=== PATIENT | male | born 1975 | race Caucasian/White ===

== ENCOUNTER → 2017-09-04 11:55 | Outpatient (CLI) | payer MEDICAID, SELFPAY ==
--- NOTE | 2017-09-04 11:59 | XR_ITS ---
EXAM: XR thoracic spine 3V HISTORY: Thoracic pain ITS.REASON: chronic pain COMPARISON: None FINDINGS: There is normal alignment. There is mild kyphosis of the thoracic spine with mild wedging of multiple dorsal vertebral bodies including T4-T12 most prominent at T5, T6, and T7. There are no previous exams available for comparison to determine the age of these compression changes. MRI may be of further value clinically warranted. There is minimal mid thoracic curvature convex right. On the frontal view the compression changes at T7 slightly more prominent on the right and T6 slightly more prominent on the left. IMPRESSION: Thoracic kyphosis with multiple wedge compression changes as described above age-indeterminate. Consider MRI for more thorough evaluation
--- NOTE | 2017-09-04 11:59 | XR_ITS ---
EXAM: XR cervical spine min 6V HISTORY: Neck pain ITS.REASON: back pain ORDERING PHYSICIAN: Armand Vazquez PATIENT AGE: 41 years COMPARISON: None FINDINGS: Normal alignment. No fracture or dislocation. No lytic or blastic change. No significant degenerative change. The disc spaces are preserved. The foramina are widely patent. Small anterior osteophytes at C5-C6. No evidence of cervical rib. IMPRESSION: 1. Small anterior osteophyte at C5-C6. 2. Otherwise negative cervical spine
--- NOTE | 2017-09-04 11:59 | XR_ITS ---
EXAM: XR lumbar spine 2-3V HISTORY: ITS.REASON: chronic back pain prior injury ORDERING PHYSICIAN: Armand Vazquez PATIENT AGE: 41 years COMPARISON: None FINDINGS: Normal alignment. No fracture or dislocation. No lytic or blastic change. No significant degenerative change. The disc spaces are preserved. IMPRESSION: Negative lumbar spine
[2017-09-04 12:16] LABS: Basophils # 0.2 K/mm3 (0-0.2); Basophils % 2.4 % (0.1-2.0); Eosinophils # 0.3 K/mm3 (0.0-0.4); Hematocrit 46.9 % (42.0-52.0); Hemoglobin 15.4 g/dL (14.1-18.0); Lymphocytes # 2.5 K/mm3 (0.7-4.5); Lymphocytes % 38.7 K/mm3 (10-50); Mean Corpuscular HGB Conc 32.9 g/dL (31.8-35.4); Mean Corpuscular Hemoglobin 33.1 pg (27.0-31.2); Mean Corpuscular Volume 100.5 fl (80-94); Mean Platelet Volume 7.9 fl (7.4-10.4); Monocytes # 0.6 K/mm3 (0.1-1.0); Monocytes % 9.2 % (1.7-9.3); Neutrophils # 2.9 K/mm3 (1.8-7.8); Neutrophils % 44.7 % (37.0-80.0); Platelet Count 248 K/mm3 (142-424); Red Blood Count 4.67 M/mm3 (4.60-6.20); Red Cell Distribution Width 13.2 % (11.5-17.5); White Blood Count 6.4 K/mm3 (4.8-10.8)
[2017-09-04 14:57] LABS: Alanine Aminotransferase 81 U/L (12-78); Albumin Level 4.1 gm/dL (3.4-5.0); Albumin/Globulin Ratio 1.1 (1.1-1.8); Alkaline Phosphatase 99 U/L (46-116); Anion Gap 12.7 mEq/L (5-15); Aspartate Amino Transferase 72 U/L (15-37); Bilirubin,Total 0.4 mg/dL (0.2-1.0); Blood Urea Nitrogen 12 mg/dL (7-18); Calcium 9.1 mg/dL (8.5-10.1); Carbon Dioxide 26 mmol/L (21.0-32.0); Chloride 106 mmol/L (98-107); Chol/HDL Ratio 2.4 (1-3.5); Cholesterol 215 mg/dL (140-200); Creatinine,Serum 0.84 mg/dL (0.70-1.30); Estimated Glomerular Filt Rate 101 ml/min (>60); GFR (African American) 122 ML/MIN (>60); Globulin 3.7 gm/dl (1.3-3.2); Glucose 90 mg/dL (74-106); HDL Cholesterol 91 mg/dL (27-67); LDL Cholesterol 113 mg/dL (0-130); Potassium 4.7 mmoL/L (3.5-5.1); Sodium 140 mmol/L (136-145); T4 (Thyroxine) 6.8 ug/dl (4.7-13.3); Thyroid Stimulating Hormone 1.23 uIU/ml (0.358-3.740); Total Protein,Serum 7.8 gm/dL (6.4-8.2); Triglycerides 55 mg/dL (30-200); VLDL Cholesterol 11 mg/dL (0-40)
[2017-09-05 09:18] LABS: Hep A Ab, IgM Negative (Negative); Hepatitis B Core Antibody IgM Positive (Negative)
[2017-09-06 11:09] LABS: Vitamin D 25 Hydroxy 18.2 ng/mL (30.0-100.0)
[2017-09-06 11:10] LABS: Hepatitis B Surface Antigen Positive (Negative); Hepatitis C Antibody >11.0 s/co ratio (0.0-0.9); PSA, Free 0.17 ng/mL; Prostate Specific Ag 0.5 ng/mL (0.0-4.0)
== END ==
PROVIDERS: PCP Emergency Medicine; Visit Provider Nurse Practitioner Family
DX: M54.9 Dorsalgia, unspecified (principal); G89.29 Other chronic pain; Z76.89 Persons encountering health services in other specified circumstances
CPT/HCPCS: 36415; 72052; 72072; 72100; 80053; 80061; 80074; 82652; 84153; 84154; 84436; 84443; 85025

== ENCOUNTER 2017-09-16 08:03 | Outpatient (RCR) | payer MEDICAID, SELFPAY ==
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
== END 2017-09-16 08:05 | disposition home or self-care (01) ==
LOC: PT 08:03
PROVIDERS: PCP Emergency Medicine; Visit Provider Nurse Practitioner Family
DX: M54.2 Cervicalgia (principal); G89.29 Other chronic pain

== ENCOUNTER → 2019-08-12 17:35 | Outpatient (CLI) | payer OTHER, SELFPAY ==
[2019-08-12 18:19] LABS: Basophils # 0.1 K/mm3 (0-0.2); Basophils % 1.3 % (0.1-2.0); Eosinophils # 0.4 K/mm3 (0.0-0.4); Eosinophils % 4.4 % (0.1-12.0); Hematocrit 44.5 % (42.0-52.0); Hemoglobin 14.7 g/dL (14.1-18.0); Lymphocytes # 3.5 K/mm3 (0.7-4.5); Mean Corpuscular Hemoglobin 33.6 pg (27.0-31.2); Mean Corpuscular Volume 101.9 fl (80-94); Mean Platelet Volume 9.1 fl (7.4-10.4); Monocytes % 10.8 % (1.7-9.3); Neutrophils # 4.2 K/mm3 (1.8-7.8); Neutrophils % 45.5 % (37.0-80.0); Platelet Count 286 K/mm3 (142-424); Red Blood Count 4.37 M/mm3 (4.60-6.20); Red Cell Distribution Width 13.1 % (11.5-17.5); White Blood Count 9.3 K/mm3 (4.8-10.8)
[2019-08-12 18:48] LABS: Alanine Aminotransferase 93 U/L (12-78); Albumin Level 3.5 gm/dL (3.4-5.0); Alkaline Phosphatase 104 U/L (46-116); Anion Gap 13.8 mEq/L (5-15); Aspartate Amino Transferase 67 U/L (15-37); Bilirubin,Total 0.4 mg/dL (0.2-1.0); Blood Urea Nitrogen 3 mg/dL (7-18); Calcium 8.7 mg/dL (8.5-10.1); Carbon Dioxide 26 mmol/L (21.0-32.0); Chloride 105 mmol/L (98-107); Creatinine,Serum 0.83 mg/dL (0.70-1.30); Estimated Glomerular Filt Rate 102 ml/min (>60); GFR (African American) 123 ML/MIN (>60); Globulin 3.5 gm/dl (1.3-3.2); Glucose 89 mg/dL (74-106); Potassium 3.8 mmoL/L (3.5-5.1); Sodium 141 mmol/L (136-145)
[2019-08-14 09:13] LABS: Hep A Ab, IgM Negative (Negative); Hepatitis B Core Antibody IgM Positive (Negative)
[2019-08-14 19:04] LABS: Hepatitis B Surface Antigen Positive (Negative); Hepatitis C Antibody >11.0 s/co ratio (0.0-0.9)
[2019-08-16 17:56] LABS: Folate 12.8 ng/mL (>3.0); Vitamin B12 1002 pg/mL (232-1245)
[2019-08-17 00:09] LABS: HCV Genotype Charge YES; Hepatitis C Genotype 1a (.)
== END ==
PROVIDERS: Visit Provider Emergency Medicine
DX: B19.20 Unspecified viral hepatitis C without hepatic coma (principal); D64.9 Anemia, unspecified
CPT/HCPCS: 80053; 80074; 82607; 82746; 85025; 87522; 87902

== ENCOUNTER → 2019-09-02 15:56 | Outpatient (CLI) | payer OTHER, SELFPAY ==
[2019-09-02 16:43] LABS: INR 1.11 (0.9-1.1); Prothrombin Time 11.5 seconds (9.4-11.8)
[2019-09-04 11:27] LABS: HIV Screen 4th Generation wRfx Non Reactive (Non Reactive)
[2019-09-11 18:42] LABS: HBV Geno CHG YES
== END ==
PROVIDERS: Visit Provider Emergency Medicine
DX: B19.20 Unspecified viral hepatitis C without hepatic coma (principal)
CPT/HCPCS: 36415; 85610; 86703; 87517; 87912; G0432

== ENCOUNTER → 2019-09-17 08:08 | Outpatient (CLI) | payer OTHER, SELFPAY ==
--- NOTE | 2019-09-17 08:15 | MR_ITS ---
PROCEDURE: MR CERVICAL SPINE WO CON CLINICAL INDICATION: neck pain Chronic neck pain COMPARISON: [facility] XR cervical spine min 6V from 09/04/2017 TECHNIQUE: Standard multiplanar multiecho sequences are performed without contrast. 3-D MIP and myelographic images are also rendered and reviewed FINDINGS: There is normal alignment. The craniocervical junction has an unremarkable appearance. C2-C3 and C3-C4 have an unremarkable appearance. C4-C5: Mild degenerative disc disease with minimal bulging disc. C5-C6: There is mild chronic wedging of C5 anteriorly with anterior osteophytes. There is a small central disc protrusion which is slightly eccentric toward the left abutting the anterior aspect of the cord on the left with minimal contour deformity of the cord at this region. This is causing narrowing of the canal with canal measuring 8 mm at the level of the disc protrusion. C6-C7: Unremarkable. C7-T1: Unremarkable. IMPRESSION: 1. There is mild chronic wedging of C5 anteriorly with anterior osteophytes. At C5-C6, there is a small central and left paracentral disc protrusion abutting the anterior aspect of the cord on the left with minimal contour deformity of the cord at this region. This is causing narrowing of the canal with canal measuring 8 mm at the level of the disc protrusion 2. Minimal bulging disc with mild degenerative disc disease at C4-C5 Dictated by: Jairo Lopez MD 09/18/2019 10:12 Electronically signed by Jiaro Lopez MD in [place] 09/18/2019 10:12
== END ==
PROVIDERS: PCP Emergency Medicine; Visit Provider Emergency Medicine
DX: M54.2 Cervicalgia (principal)
CPT/HCPCS: 72141; 76376

== ENCOUNTER → 2020-01-05 16:37 | Outpatient (CLI) | payer OTHER, SELFPAY ==
[2020-01-05 16:54] LABS: Basophils # 0.2 K/mm3 (0-0.2); Basophils % 1.9 % (0.1-2.0); Eosinophils # 0.4 K/mm3 (0.0-0.4); Eosinophils % 5.1 % (0.1-12.0); Hematocrit 45.2 % (42.0-52.0); Lymphocytes % 37.7 % (10-50); Mean Corpuscular HGB Conc 33.1 g/dL (31.8-35.4); Mean Corpuscular Hemoglobin 34.1 pg (27.0-31.2); Mean Corpuscular Volume 102.9 fl (80-94); Monocytes # 0.9 K/mm3 (0.1-1.0); Monocytes % 11.4 % (1.7-9.3); Neutrophils # 3.5 K/mm3 (1.8-7.8); Neutrophils % 43.9 % (37.0-80.0); Platelet Count 222 K/mm3 (142-424); Red Blood Count 4.39 M/mm3 (4.60-6.20); Red Cell Distribution Width 13.3 % (11.5-17.5); White Blood Count 8.1 K/mm3 (4.8-10.8)
[2020-01-05 17:03] LABS: Chloride 107 mmol/L (98-107); Potassium 4.5 mmoL/L (3.5-5.1); Sodium 139 mmol/L (136-145)
[2020-01-05 17:06] LABS: Alanine Aminotransferase 251 U/L (12-78); Albumin Level 3.7 g/dl (3.5-5.0); Albumin/Globulin Ratio 1.1 (1.1-1.8); Alkaline Phosphatase 130 U/L (38-126); Anion Gap 9.5 mEq/L (5-15); Aspartate Amino Transferase 256 U/L (17-59); Bilirubin,Total 0.7 mg/dl (0.2-1.3); Blood Urea Nitrogen 10 mg/dl (9-20); Calcium 8.8 mg/dl (8.4-10.2); Carbon Dioxide 27 mmol/L (22.0-30.0); Estimated Glomerular Filt Rate 106 ml/min (>60); GFR (African American) 128 ML/MIN (>60); Globulin 3.5 g/dL (1.3-3.2); Glucose 80 mg/dl (74-100); Total Protein,Serum 7.2 g/dl (6.3-8.2)
[2020-01-07 08:14] LABS: HIV Screen 4th Generation wRfx Non Reactive (Non Reactive); Hep A Ab, IgM Negative (Negative); Hep A Ab, Total Negative (Negative); Hep B Core Ab, Total Positive (Negative)
[2020-01-07 10:00] LABS: Hep B Surface Ab, Qual Non Reactive (.); Hepatitis B Surface Antigen Positive (Negative)
[2020-01-14 00:12] LABS: Hepatitis C Genotype 1a (.)
== END ==
PROVIDERS: Visit Provider Emergency Medicine
DX: B19.10 Unspecified viral hepatitis B without hepatic coma (principal); B19.20 Unspecified viral hepatitis C without hepatic coma
CPT/HCPCS: 80053; 85025; 86703; 86704; 86706; 86708; 87340; 87517; 87522; G0432

== ENCOUNTER 2020-01-31 20:02 | Emergency (ER) | payer OTHER, SELFPAY ==
[2020-01-31 20:14] VITALS: BP 168/122; PULSE 110; RESP 16; TEMP 36.5; O2SAT 98; BMI 22.6
--- NOTE | 2020-01-31 20:20 | PC.NURSE ---
Pt walking out, when asked where he was going he stated I'm leaving I don't want to be here pt refused to stop and let me talk to him about the dangers of leaving before the doctor see him.
[2020-01-31 20:25] VITALS: BP 000/00; PULSE 0; RESP 0; TEMP -17.7; TEMP 0; O2SAT 0
== END 2020-01-31 20:20 | disposition left against medical advice (07) ==
PROVIDERS: Emergency Provider Emergency Medicine; PCP Emergency Medicine
DX: Z53.21 Procedure and treatment not carried out due to patient leaving prior to being seen by health care provider (principal); M54.9 Dorsalgia, unspecified
CPT/HCPCS: 99211

== ENCOUNTER → 2020-09-29 09:29 | Outpatient (CLI) | payer OTHER, SELFPAY ==
[2020-09-29 10:15] LABS: Basophils # 0.2 K/mm3 (0-0.2); Basophils % 1.7 % (0.1-2.0); Eosinophils # 0.4 K/mm3 (0.0-0.4); Eosinophils % 4.4 % (0.1-12.0); Hematocrit 49.2 % (42.0-52.0); Hemoglobin 15.8 g/dL (14.1-18.0); Lymphocytes # 4.2 K/mm3 (0.7-4.5); Lymphocytes % 42.2 % (10-50); Mean Corpuscular Hemoglobin 34.1 pg (27.0-31.2); Mean Corpuscular Volume 106.5 fl (80-94); Monocytes # 1.1 K/mm3 (0.1-1.0); Monocytes % 11.5 % (1.7-9.3); Neutrophils % 40.2 % (37.0-80.0); Platelet Count 206 K/mm3 (142-424); Red Blood Count 4.62 M/mm3 (4.60-6.20); Red Cell Distribution Width 14.3 % (11.5-17.5); White Blood Count 9.8 K/mm3 (4.8-10.8)
[2020-09-29 10:29] LABS: Hemoglobin A1C 4.6 % (4.0-6.0)
[2020-09-29 10:36] LABS: Alanine Aminotransferase 308 U/L (12-78); Albumin Level 3.8 g/dl (3.5-5.0); Albumin/Globulin Ratio 0.9 (1.1-1.8); Alkaline Phosphatase 247 U/L (38-126); Anion Gap 8.2 mEq/L (5-15); Aspartate Amino Transferase 456 U/L (17-59); Bilirubin,Total 1.6 mg/dl (0.2-1.3); Blood Urea Nitrogen 8 mg/dl (9-20); Calcium 9.6 mg/dl (8.4-10.2); Carbon Dioxide 21 mmol/L (22.0-30.0); Chloride 111 mmol/L (98-107); Chol/HDL Ratio 3.7 (1-3.5); Cholesterol 211 mg/dl (140-200); Estimated Glomerular Filt Rate 123 ml/min (>60); GFR (African American) 149 ML/MIN (>60); Globulin 4.2 g/dL (1.3-3.2); Glucose 94 mg/dl (74-100); HDL Cholesterol 57 mg/dl (40-60); Potassium 4.2 mmoL/L (3.5-5.1); Sodium 136 mmol/L (136-145); Triglycerides 105 mg/dl (30-150); VLDL Cholesterol 21 mg/dL (0-40)
[2020-09-29 10:47] LABS: Direct LDL Cholesterol 89.74 mg/dL (100-129)
[2020-09-29 11:07] LABS: Thyroid Stimulating Hormone 1.06 uIU/mL (0.465-4.68)
[2020-09-29 11:26] LABS: Vitamin B12 777 pg/mL (239-931)
[2020-10-07 17:54] LABS: 1,25 Dihydroxy Vitamin D 35 pg/mL (.); 1,25-Dihydroxy, Vitamin D-2 <10 pg/mL (.); 1,25-Dihydroxy, Vitamin D-3 35 pg/mL (.)
== END ==
PROVIDERS: Visit Provider Nurse Practitioner Psychiatric/Mental Health
DX: Z00.00 Encounter for general adult medical examination without abnormal findings (principal); Z79.899 Other long term (current) drug therapy; R74.8 Abnormal levels of other serum enzymes
CPT/HCPCS: 36415; 80053; 80061; 82607; 82652; 83036; 84443; 85025

== ENCOUNTER → 2021-01-03 18:11 | Outpatient (CLI) | payer OTHER, SELFPAY ==
[2021-01-03 19:24] LABS: Alanine Aminotransferase 405 U/L (12-78); Albumin Level 3.6 g/dl (3.5-5.0); Albumin/Globulin Ratio 0.9 (1.1-1.8); Alkaline Phosphatase 263 U/L (38-126); Anion Gap 11.1 mEq/L (5-15); Bilirubin,Total 2.6 mg/dl (0.2-1.3); Blood Urea Nitrogen 9 mg/dl (9-20); Carbon Dioxide 21 mmol/L (22.0-30.0); Chloride 107 mmol/L (98-107); Estimated Glomerular Filt Rate 123 ml/min (>60); GFR (African American) 148 ML/MIN (>60); Globulin 4.2 g/dL (1.3-3.2); Glucose 105 mg/dl (74-100); Potassium 4.1 mmoL/L (3.5-5.1); Sodium 135 mmol/L (136-145); Total Protein,Serum 7.8 g/dl (6.3-8.2)
[2021-01-03 19:47] LABS: Aspartate Amino Transferase 768 U/L (17-59)
[2021-01-04 13:43] LABS: Amphetamine/Metha Screen,Urine Negative ng/ml (<1000); Barbiturates Screen,Urine Negative ng/ml (<200); Benzodiazepines Screen,Urine Negative ng/ml (<200); Cannabinoid Screen,Urine Positive ng/ml (<50); Cocaine Screen,Urine Negative ng/ml (<300); Methadone Screen,Urine Negative ng/ml (<300); Opiate Screen,Urine Negative ng/ml (<300); Phencyclidine Screen,Urine Negative ng/ml (<25)
== END ==
PROVIDERS: Visit Provider Emergency Medicine
DX: M54.9 Dorsalgia, unspecified (principal); R53.83 Other fatigue
CPT/HCPCS: 80053; 80305

== ENCOUNTER → 2022-01-18 08:02 | Outpatient (CLI) | payer OTHER, SELFPAY ==
--- NOTE | 2022-01-18 08:02 | MR_ITS ---
FINAL REPORT CLINICAL HISTORY: right sided back pain. bilateral leg weakness and pain x1year. FINDINGS: Multiplanar MR imaging of the lumbar spine was performed without contrast. On the sagittal T2-weighted images, disc degeneration is seen at multiple levels. The vertebral alignment is normal. There is no evidence of fracture. The conus has an unremarkable appearance. T12-L1: No significant canal stenosis or neural foraminal narrowing. L1-2: No significant canal stenosis or neural foraminal narrowing. L2-3: An annular bulge is present. There is a posterior midline annular tear with mild bilateral neural foraminal narrowing. L3-4: An annular bulge is present. There is a right foraminal disc protrusion moderate right mild left neural foraminal narrowing. L4-5: An annular bulge is present. There is a posterior midline annular tear with mild bilateral neural foraminal narrowing. L5-S1: An annular bulge is present. There is a left paracentral annular tear disc protrusion which contacts the left S1 nerve root. There is mild bilateral neural foraminal narrowing. IMPRESSION: Multilevel degenerative disc disease, annular tears, and disc protrusions as detailed above. Reviewed, Interpreted and Dictated by Eusebio Villareal III, MD Transcribed by Maryam Lewis Authenticated and [facility]
== END ==
PROVIDERS: PCP Emergency Medicine; Visit Provider Emergency Medicine
DX: M54.50 Low back pain, unspecified (principal)
CPT/HCPCS: 72148; 76376

== ENCOUNTER → 2022-01-25 11:38 | Outpatient (POV) | payer OTHER, SELFPAY ==
[2022-01-25 11:58] VITALS: BP 128/85; PULSE 115; RESP 20; O2SAT 95; BMI 23.3
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
== END ==
PROVIDERS: Visit Provider Student in an Organized Health Care Education/Training Program
DX: M47.22 Other spondylosis with radiculopathy, cervical region (principal); M19.90 Unspecified osteoarthritis, unspecified site; Z72.0 Tobacco use
CPT/HCPCS: 99202; G0463

== ENCOUNTER → 2022-01-31 12:55 | Outpatient (CLI) | payer OTHER, SELFPAY ==
--- NOTE | 2022-01-31 12:56 | MR_ITS ---
FINAL REPORT CLINICAL HISTORY: NECK/BACK PAIN, HX MULTIPLE COMPRESSION FX'S, UPPER AND LOWER EXTREMITY NUMBNESS. FINDINGS: Multiplanar MR imaging of the thoracic spine was performed without contrast. On the sagittal T2-weighted images, disc degeneration is seen at several levels. There are Schmorl's nodes at several levels. There is no evidence of acute fracture. There is mild T5, mild T6 and moderate T7 chronic compression fractures. There is moderate T9 compression fracture with mild bone marrow edema, may be subacute. The vertebral alignment is normal. No bony mass is identified. The thoracic spinal cord has an unremarkable appearance without evidence of mass, edema or syrinx. There is no evidence of canal stenosis or cord compression. On the axial images, disc bulges are seen at multiple levels. There are small anterior osteophytes. There is no evidence of significant canal stenosis. No paraspinous soft tissue abnormality is seen. IMPRESSION: Mild and moderate chronic compression fractures as above. Moderate T9 compression fracture, may be subacute. Disc bulges at multiple levels. Reviewed, Interpreted and Dictated by Eusebio Villareal III, MD Transcribed by Mary Mcgovern Authenticated and [facility]
--- NOTE | 2022-01-31 12:56 | MR_ITS ---
FINAL REPORT CLINICAL HISTORY: NECK/BACK PAIN, HX MULTIPLE COMPRESSION FX'S, UPPER AND LOWER EXTREMITY NUMBNESS. COMPARISON: September 17, 2019 FINDINGS: Multiplanar MR imaging of the cervical spine was performed without contrast. On the sagittal T2-weighted images, disc degeneration is seen at several levels. There are endplate changes at C4-5. There is no evidence of fracture. The vertebral alignment is normal. The cervical spinal cord has an unremarkable appearance without evidence of mass, edema or syrinx. No significant canal stenosis is identified. The cervicomedullary junction is normal. C2-3: There is no significant canal stenosis or neural foraminal narrowing. C3-4: There is no significant canal stenosis or neural foraminal narrowing. C4-5: A disc osteophyte complex is present. C5-6: An annular bulge is present. Bilateral uncovertebral osteophytes are present. There is mild bilateral neural foraminal narrowing. There is mild central canal stenosis with an AP diameter of the thecal sac of 9 mm. C6-7: An annular bulge is present. C7-T1: There is no significant canal stenosis or neural foraminal narrowing. IMPRESSION: Appearance not significantly changed since the prior examination. Reviewed, Interpreted and Dictated by Eusebio Villareal III, MD Transcribed by Mary Mcgovern Authenticated and [facility]
== END ==
PROVIDERS: PCP Emergency Medicine; Visit Provider Student in an Organized Health Care Education/Training Program
DX: M54.2 Cervicalgia (principal); M54.6 Pain in thoracic spine
CPT/HCPCS: 72141; 72146; 76376

== ENCOUNTER → 2022-02-15 09:32 | Outpatient (POV) | payer OTHER, SELFPAY ==
[2022-02-15 10:58] VITALS: BP 114/78; PULSE 88; RESP 20; TEMP 36.9; O2SAT 97; BMI 23.9
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
== END ==
PROVIDERS: Visit Provider Student in an Organized Health Care Education/Training Program
DX: M51.16 Intervertebral disc disorders with radiculopathy, lumbar region (principal); M50.122 Cervical disc disorder at C5-C6 level with radiculopathy; M48.02 Spinal stenosis, cervical region; M25.519 Pain in unspecified shoulder
CPT/HCPCS: 99212; G0463

== ENCOUNTER 2022-03-23 10:13 | Day surgery (SDC) | payer OTHER, SELFPAY ==
[2022-03-23 10:25] VITALS: BP 116/79; PULSE 116; TEMP 37.3; O2SAT 96; BMI 23.9
[2022-03-23 10:52] VITALS: BP 105/72; PULSE 102; RESP 18; O2SAT 96
--- NOTE | 2022-03-23 11:05 | HMH.PMPROC ---
- Procedure Date: 03/23/22 Time: 10:45 Anesthesiologist:: Clemente Etienne CRNA Complications:: None Pre-procedure Diagnosis:: Degenerative disc disease thoracic spine. Thoracic disc bulge. Thoracic radiculopathy. Post-procedure Diagnosis:: Same Indications for Procedure:: Very pleasant 46-year-old male that presents today for an initial T8-9 thoracic epidural steroid injection. Patient describes his thoracic spine pain as constant, dull, aching. He also complains of bilateral thoracic radiculopathy. He rates his pain 7/10. Procedure Details:: Procedure: Thoracic epidural steroid injection Informed consent was obtained and the risks and benefits of the procedure were explained to the patient. The patient was taken to the procedure room and noninvasive monitors placed, including noninvasive blood pressure cuff and pulse oximeter. The neck was prepped using Betadine as a cleansing solution. The T8-9 interspace was palpated. The skin and subcutaneous tissues were anesthetized using lidocaine 1.5% and a 25-gauge needle. After this an 18-gauge Touhy epidural needle was placed into the T8-9 interspace and advanced using loss of resistance to air until the epidural space was encountered. After confirmation of needle placement in the epidural space 4 mL of normal saline and Depo-Medrol 80 mg was incrementally injected into the thoracic epidural space.~ The patient tolerated the procedure well with no complications. The patient was observed in the Pain Clinic and then discharged home neurologically intact. Plan and Disposition:: Patient was discharged without incident.
== END 2022-03-23 10:53 | disposition home or self-care (01) ==
LOC: SC.PAINP 10:14
PROVIDERS: PCP Emergency Medicine; Visit Provider Nurse Anesthetist, Certified Registered
DX: M51.14 Intervertebral disc disorders with radiculopathy, thoracic region (principal)
CPT/HCPCS: 62321; J1040

== ENCOUNTER → 2022-04-04 09:55 | Outpatient (POV) | payer OTHER, SELFPAY ==
[2022-04-04 10:07] VITALS: BP 108/81; PULSE 101; RESP 18; TEMP 36.7; O2SAT 96; BMI 23.9
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
== END ==
PROVIDERS: PCP Emergency Medicine; Visit Provider Nurse Practitioner Family
DX: M51.16 Intervertebral disc disorders with radiculopathy, lumbar region (principal); M50.10 Cervical disc disorder with radiculopathy, unspecified cervical region; M51.14 Intervertebral disc disorders with radiculopathy, thoracic region; M48.02 Spinal stenosis, cervical region
CPT/HCPCS: 99212; G0463

== ENCOUNTER → 2022-08-27 10:32 | Outpatient (CLI) | payer OTHER, SELFPAY ==
[2022-08-27 11:34] LABS: Barbiturates Screen,Urine Negative ng/ml (<200)
[2022-08-27 11:35] LABS: Amphetamine/Metha Screen,Urine Negative ng/ml (<1000); Benzodiazepines Screen,Urine Negative ng/ml (<200)
[2022-08-27 11:36] LABS: Cocaine Screen,Urine Negative ng/ml (<300); Methadone Screen,Urine Negative ng/ml (<300)
[2022-08-27 11:37] LABS: Cannabinoid Screen,Urine Negative ng/ml (<50)
[2022-08-27 11:38] LABS: Opiate Screen,Urine Negative ng/ml (<300); Phencyclidine Screen,Urine Negative ng/ml (<25)
== END ==
PROVIDERS: PCP Emergency Medicine
DX: F41.1 Generalized anxiety disorder (principal)
CPT/HCPCS: 80305

== ENCOUNTER → 2022-09-03 08:02 | Outpatient (CLI) | payer OTHER, SELFPAY ==
[2022-09-03 08:44] LABS: Amphetamine/Metha Screen,Urine Negative ng/ml (<1000)
[2022-09-03 08:45] LABS: Barbiturates Screen,Urine Negative ng/ml (<200); Benzodiazepines Screen,Urine Negative ng/ml (<200)
[2022-09-03 08:46] LABS: Cannabinoid Screen,Urine Negative ng/ml (<50)
[2022-09-03 08:47] LABS: Cocaine Screen,Urine Negative ng/ml (<300)
[2022-09-03 08:48] LABS: Opiate Screen,Urine Negative ng/ml (<300)
[2022-09-03 08:49] LABS: Phencyclidine Screen,Urine Negative ng/ml (<25)
[2022-09-03 13:21] LABS: Methadone Screen,Urine Negative ng/ml (<300)
== END ==
PROVIDERS: PCP Emergency Medicine
DX: F15.20 Other stimulant dependence, uncomplicated (principal); F41.1 Generalized anxiety disorder
CPT/HCPCS: 80305

== ENCOUNTER → 2022-09-10 08:06 | Outpatient (CLI) | payer OTHER, SELFPAY ==
[2022-09-10 15:32] LABS: Cannabinoid Screen,Urine Negative ng/ml (<50)
[2022-09-10 15:33] LABS: Barbiturates Screen,Urine Negative ng/ml (<200); Benzodiazepines Screen,Urine Negative ng/ml (<200)
[2022-09-10 15:34] LABS: Cocaine Screen,Urine Negative ng/ml (<300)
[2022-09-10 15:35] LABS: Methadone Screen,Urine Negative ng/ml (<300); Opiate Screen,Urine Negative ng/ml (<300)
[2022-09-10 15:36] LABS: Phencyclidine Screen,Urine Negative ng/ml (<25)
[2022-09-12 18:41] LABS: Amphetamine/Metha Screen,Urine Negative ng/ml (<1000)
== END ==
PROVIDERS: PCP Emergency Medicine; Visit Provider Emergency Medicine
DX: Z79.899 Other long term (current) drug therapy (principal)
CPT/HCPCS: 80305

== ENCOUNTER → 2022-09-17 08:07 | Outpatient (CLI) | payer OTHER, SELFPAY ==
[2022-09-17 09:31] LABS: Amphetamine/Metha Screen,Urine Negative ng/ml (<1000); Barbiturates Screen,Urine Negative ng/ml (<200); Benzodiazepines Screen,Urine Negative ng/ml (<200); Cannabinoid Screen,Urine Negative ng/ml (<50); Cocaine Screen,Urine Negative ng/ml (<300); Methadone Screen,Urine Negative ng/ml (<300); Opiate Screen,Urine Negative ng/ml (<300); Phencyclidine Screen,Urine Negative ng/ml (<25)
== END ==
PROVIDERS: PCP Emergency Medicine; Visit Provider Nurse Practitioner Family
DX: F15.20 Other stimulant dependence, uncomplicated (principal); F41.1 Generalized anxiety disorder; F32.9 Major depressive disorder, single episode, unspecified; F20.9 Schizophrenia, unspecified
CPT/HCPCS: 80305

== ENCOUNTER → 2022-09-24 07:57 | Outpatient (CLI) | payer OTHER, SELFPAY ==
[2022-09-24 09:04] LABS: Barbiturates Screen,Urine Negative ng/ml (<200)
[2022-09-24 09:05] LABS: Benzodiazepines Screen,Urine Negative ng/ml (<200)
[2022-09-24 09:06] LABS: Amphetamine/Metha Screen,Urine Negative ng/ml (<1000); Cannabinoid Screen,Urine Negative ng/ml (<50)
[2022-09-24 09:07] LABS: Cocaine Screen,Urine Negative ng/ml (<300)
[2022-09-24 09:08] LABS: Opiate Screen,Urine Negative ng/ml (<300)
[2022-09-24 09:09] LABS: Phencyclidine Screen,Urine Negative ng/ml (<25)
[2022-09-24 09:32] LABS: Methadone Screen,Urine Negative ng/ml (<300)
== END ==
PROVIDERS: PCP Emergency Medicine; Visit Provider Nurse Practitioner Family
DX: F15.20 Other stimulant dependence, uncomplicated (principal); F41.1 Generalized anxiety disorder; F32.9 Major depressive disorder, single episode, unspecified; F20.9 Schizophrenia, unspecified
CPT/HCPCS: 80305

== ENCOUNTER → 2022-09-25 12:57 | Outpatient (CLI) | payer OTHER, SELFPAY ==
[2022-09-25 13:45] LABS: Basophils # 0.1 K/mm3 (0-0.2); Basophils % 1.7 % (0.1-2.0); Eosinophils # 0.4 K/mm3 (0.0-0.4); Eosinophils % 4.6 % (0.1-12.0); Hematocrit 40.6 % (42.0-52.0); Hemoglobin 13.1 g/dL (14.1-18.0); Lymphocytes # 2.6 K/mm3 (0.7-4.5); Lymphocytes % 32.9 % (10-50); Mean Corpuscular HGB Conc 32.4 g/dL (31.8-35.4); Mean Corpuscular Hemoglobin 34.9 pg (27.0-31.2); Mean Corpuscular Volume 107.6 fl (80-94); Mean Platelet Volume 7.9 fl (7.4-10.4); Monocytes # 1.3 K/mm3 (0.1-1.0); Monocytes % 16.6 % (1.7-9.3); Neutrophils # 3.5 K/mm3 (1.8-7.8); Neutrophils % 44.2 % (37.0-80.0); Platelet Count 221 K/mm3 (142-424); Red Blood Count 3.77 M/mm3 (4.60-6.20); Red Cell Distribution Width 13.8 % (11.5-17.5); White Blood Count 7.9 K/mm3 (4.8-10.8)
[2022-09-25 14:49] LABS: Thyroid Stimulating Hormone 0.65 uIU/mL (0.465-4.68)
[2022-09-25 14:57] LABS: Alanine Aminotransferase 28 U/L (12-78); Albumin Level 3.8 g/dl (3.5-5.0); Albumin/Globulin Ratio 1.3 (1.1-1.8); Alkaline Phosphatase 120 U/L (38-126); Anion Gap 11.6 mEq/L (5-15); Aspartate Amino Transferase 48 U/L (17-59); Bilirubin,Total 0.7 mg/dl (0.2-1.3); Blood Urea Nitrogen 4 mg/dl (9-20); Calcium 8.9 mg/dl (8.4-10.2); Carbon Dioxide 22 mmol/L (22.0-30.0); Chloride 112 mmol/L (98-107); Estimated Glomerular Filt Rate 91 ml/min (>60); GFR (African American) 110 ML/MIN (>60); Glucose 79 mg/dl (74-100); Potassium 3.6 mmoL/L (3.5-5.1); Sodium 142 mmol/L (136-145); Total Protein,Serum 6.8 g/dl (6.3-8.2)
[2022-09-26 07:15] LABS: Hepatitis B Core Antibody IgM Positive (Negative)
[2022-09-26 08:16] LABS: HIV Screen 4th Generation wRfx Non Reactive (Non Reactive)
[2022-09-26 23:05] LABS: Neisseria gonorrhoeae, NAA Negative (Negative)
[2022-09-29 14:28] LABS: Gabapentin,Urine >800.0 ug/mL (.)
[2022-10-06 20:55] LABS: Hepatitis B Surface Antigen POSITIVE; Hepatitis C Antibody REACTIVE; Trichomonas Vaginalis, NAA NEGATIVE
== END ==
PROVIDERS: PCP Emergency Medicine; Visit Provider Nurse Practitioner Family
DX: F11.21 Opioid dependence, in remission (principal); F12.21 Cannabis dependence, in remission; F10.21 Alcohol dependence, in remission; F20.9 Schizophrenia, unspecified; F41.1 Generalized anxiety disorder; F15.20 Other stimulant dependence, uncomplicated; F32.9 Major depressive disorder, single episode, unspecified; B19.10 Unspecified viral hepatitis B without hepatic coma; B19.20 Unspecified viral hepatitis C without hepatic coma; Z90.81 Acquired absence of spleen; Z90.49 Acquired absence of other specified parts of digestive tract; Z11.4 Encounter for screening for human immunodeficiency virus [HIV]
CPT/HCPCS: 36415; 80053; 80307; 84443; 85025; 86703; 86704; 87340; 87380; 87491; 87563; 87591; 87661; G0432

== ENCOUNTER → 2022-10-01 08:55 | Outpatient (CLI) | payer OTHER, SELFPAY ==
[2022-10-02 10:08] LABS: Amphetamine/Metha Screen,Urine Negative ng/ml (<1000); Barbiturates Screen,Urine Negative ng/ml (<200); Benzodiazepines Screen,Urine Negative ng/ml (<200); Cannabinoid Screen,Urine Negative ng/ml (<50); Cocaine Screen,Urine Negative ng/ml (<300); Methadone Screen,Urine Negative ng/ml (<300); Opiate Screen,Urine Negative ng/ml (<300); Phencyclidine Screen,Urine Negative ng/ml (<25)
[2022-10-05 01:18] LABS: Gabapentin,Urine >800.0 ug/mL (.)
== END ==
PROVIDERS: Nurse Practitioner Family; PCP Emergency Medicine; Visit Provider Nurse Practitioner Family
DX: F15.20 Other stimulant dependence, uncomplicated (principal); F11.21 Opioid dependence, in remission; F41.1 Generalized anxiety disorder; F12.21 Cannabis dependence, in remission; F32.9 Major depressive disorder, single episode, unspecified; F20.9 Schizophrenia, unspecified; F10.21 Alcohol dependence, in remission
CPT/HCPCS: 80305; 80307

== ENCOUNTER → 2022-10-08 07:57 | Outpatient (CLI) | payer OTHER, SELFPAY ==
[2022-10-08 10:08] LABS: Amphetamine/Metha Screen,Urine Negative ng/ml (<1000); Benzodiazepines Screen,Urine Negative ng/ml (<200)
[2022-10-08 10:09] LABS: Barbiturates Screen,Urine Negative ng/ml (<200); Cocaine Screen,Urine Negative ng/ml (<300)
[2022-10-08 10:10] LABS: Methadone Screen,Urine Negative ng/ml (<300)
[2022-10-08 10:11] LABS: Cannabinoid Screen,Urine Positive ng/ml (<50); Opiate Screen,Urine Negative ng/ml (<300)
[2022-10-08 10:12] LABS: Phencyclidine Screen,Urine Negative ng/ml (<25)
[2022-10-10 20:09] LABS: Gabapentin,Urine 650.8 ug/mL (.)
== END ==
PROVIDERS: Nurse Practitioner Family; PCP Emergency Medicine; Visit Provider Nurse Practitioner Family
DX: F15.20 Other stimulant dependence, uncomplicated (principal); F11.21 Opioid dependence, in remission; F10.21 Alcohol dependence, in remission; F41.1 Generalized anxiety disorder; F32.9 Major depressive disorder, single episode, unspecified; F20.9 Schizophrenia, unspecified; B19.20 Unspecified viral hepatitis C without hepatic coma
CPT/HCPCS: 80305; 80307

== ENCOUNTER → 2022-10-15 08:32 | Outpatient (CLI) | payer OTHER, SELFPAY ==
[2022-10-15 09:31] LABS: Amphetamine/Metha Screen,Urine Negative ng/ml (<1000)
[2022-10-15 09:32] LABS: Barbiturates Screen,Urine Negative ng/ml (<200); Benzodiazepines Screen,Urine Negative ng/ml (<200)
[2022-10-15 09:33] LABS: Cannabinoid Screen,Urine Negative ng/ml (<50); Cocaine Screen,Urine Negative ng/ml (<300)
[2022-10-15 09:34] LABS: Methadone Screen,Urine Negative ng/ml (<300)
[2022-10-15 09:35] LABS: Opiate Screen,Urine Negative ng/ml (<300); Phencyclidine Screen,Urine Negative ng/ml (<25)
== END ==
PROVIDERS: Nurse Practitioner Family; PCP Emergency Medicine; Visit Provider Nurse Practitioner Family
DX: F15.20 Other stimulant dependence, uncomplicated (principal); F11.21 Opioid dependence, in remission; F10.21 Alcohol dependence, in remission; F41.1 Generalized anxiety disorder; F32.9 Major depressive disorder, single episode, unspecified; F20.9 Schizophrenia, unspecified
CPT/HCPCS: 80305

== ENCOUNTER → 2022-10-22 08:15 | Outpatient (CLI) | payer OTHER, SELFPAY ==
[2022-10-22 09:12] LABS: Amphetamine/Metha Screen,Urine Negative ng/ml (<1000)
[2022-10-22 09:13] LABS: Barbiturates Screen,Urine Negative ng/ml (<200); Benzodiazepines Screen,Urine Negative ng/ml (<200)
[2022-10-22 09:14] LABS: Cannabinoid Screen,Urine Positive ng/ml (<50); Cocaine Screen,Urine Negative ng/ml (<300)
[2022-10-22 09:15] LABS: Methadone Screen,Urine Negative ng/ml (<300)
[2022-10-22 09:16] LABS: Opiate Screen,Urine Negative ng/ml (<300); Phencyclidine Screen,Urine Negative ng/ml (<25)
== END ==
PROVIDERS: Nurse Practitioner Family; PCP Emergency Medicine; Visit Provider Emergency Medicine
DX: F15.20 Other stimulant dependence, uncomplicated (principal); F41.1 Generalized anxiety disorder; F32.9 Major depressive disorder, single episode, unspecified; F20.9 Schizophrenia, unspecified
CPT/HCPCS: 80305

== ENCOUNTER → 2022-10-29 08:09 | Outpatient (CLI) | payer OTHER, SELFPAY ==
[2022-10-30 10:01] LABS: Barbiturates Screen,Urine Negative ng/ml (<200)
[2022-10-30 10:02] LABS: Amphetamine/Metha Screen,Urine Positive ng/ml (<1000); Benzodiazepines Screen,Urine Negative ng/ml (<200)
[2022-10-30 10:05] LABS: Cannabinoid Screen,Urine Negative ng/ml (<50); Cocaine Screen,Urine Negative ng/ml (<300)
[2022-10-30 10:06] LABS: Methadone Screen,Urine Negative ng/ml (<300)
[2022-10-30 10:07] LABS: Phencyclidine Screen,Urine Negative ng/ml (<25)
[2022-10-30 11:13] LABS: Opiate Screen,Urine Negative ng/ml (<300)
[2022-11-06 22:59] LABS: Barbiturates NEGATIVE; Buprenorphine NEGATIVE; Cocaine Metabolite NEGATIVE; Fentanyl NEGATIVE; Opiates NEGATIVE
[2022-11-06 23:00] LABS: 6-Acetylmorphine NEGATIVE; Benzodiazepines NEGATIVE; Nitrites NEAGTIVE; Phencyclidine NEGATIVE
[2022-11-06 23:04] LABS: Gabapentin >800.0 ug/mL; Marijuana MTB (THC) POSITIVE; Propoxyphene NEGATIVE; Tapentadol NEGATIVE; Tramadol NEGATIVE
[2022-11-06 23:05] LABS: Amphetamines POSITIVE; Carisoprodol NEGATIVE; Methadone NEGATIVE
== END ==
PROVIDERS: Nurse Practitioner Family; PCP Emergency Medicine; Visit Provider Emergency Medicine
DX: F15.20 Other stimulant dependence, uncomplicated (principal)
CPT/HCPCS: 80305

== ENCOUNTER → 2022-11-05 08:12 | Outpatient (CLI) | payer OTHER, SELFPAY ==
[2022-11-17 16:47] LABS: Barbiturates NEGATIVE; Cocaine Metabolite NEGATIVE; Fentanyl NEGATIVE
[2022-11-17 16:48] LABS: Buprenorphine NEGATIVE; Opiates NEGATIVE
[2022-11-17 16:50] LABS: 6-Acetylmorphine NEGATIVE; Benzodiazepines NEGATIVE; Gabapentin 3.4 ug/mL; Nitrites NEGATIVE; Phencyclidine NEGATIVE
[2022-11-17 16:52] LABS: Marijuana MTB (THC) NEGATIVE; Propoxyphene NEGATIVE; Tapentadol NEGATIVE; Tramadol NEGATIVE; Urine pH 7.1
[2022-11-17 16:53] LABS: Amphetamines POSITIVE; Carisoprodol NEGATIVE; Methadone NEGATIVE
== END ==
PROVIDERS: PCP Emergency Medicine; Visit Provider Nurse Practitioner Family
DX: F15.20 Other stimulant dependence, uncomplicated (principal)
CPT/HCPCS: 80307

== ENCOUNTER → 2022-11-12 08:26 | Outpatient (CLI) | payer OTHER, SELFPAY ==
[2022-11-17 17:34] LABS: Fentanyl NEGATIVE; Urine pH 7.1
[2022-11-17 17:35] LABS: 6-Acetylmorphine NEGATIVE; Amphetamines POSITIVE; Barbiturates NEGATIVE; Benzodiazepines NEGATIVE; Buprenorphine NEGATIVE; Carisoprodol NEGATIVE; Cocaine Metabolite NEGATIVE; Gabapentin NEGATIVE; Marijuana MTB (THC) NEGATIVE; Methadone NEGATIVE; Nitrites NEGATIVE; Opiates NEGATIVE; Phencyclidine NEGATIVE; Propoxyphene NEGATIVE; Tapentadol NEGATIVE; Tramadol NEGATIVE
== END ==
PROVIDERS: PCP Emergency Medicine; Visit Provider Nurse Practitioner Family
DX: F15.20 Other stimulant dependence, uncomplicated (principal); F41.1 Generalized anxiety disorder; F32.9 Major depressive disorder, single episode, unspecified; F20.9 Schizophrenia, unspecified; F11.21 Opioid dependence, in remission; F12.21 Cannabis dependence, in remission; F10.21 Alcohol dependence, in remission; B19.10 Unspecified viral hepatitis B without hepatic coma
CPT/HCPCS: 80307

== ENCOUNTER → 2022-11-19 09:48 | Outpatient (CLI) | payer OTHER, SELFPAY ==
[2022-12-09 15:03] LABS: Barbiturates NEGATIVE; Cocaine Metabolite NEGATIVE; Fentanyl NEGATIVE; Opiates NEGATIVE
[2022-12-09 15:04] LABS: 6-Acetylmorphine NEGATIVE; Benzodiazepines NEGATIVE; Buprenorphine NEGATIVE; Gabapentin NEGATIVE; Nitrites NEGATIVE; Phencyclidine NEGATIVE; Tapentadol NEGATIVE; Tramadol NEGATIVE
[2022-12-09 15:05] LABS: Amphetamines NEGATIVE; Carisoprodol NEGATIVE; Methadone NEGATIVE; Propoxyphene NEGATIVE
[2022-12-09 15:06] LABS: Marijuana MTB (THC) POSITIVE
== END ==
PROVIDERS: PCP Emergency Medicine; Visit Provider Nurse Practitioner Family
DX: F15.20 Other stimulant dependence, uncomplicated (principal)
CPT/HCPCS: 80307

== ENCOUNTER → 2022-11-26 12:02 | Outpatient (CLI) | payer OTHER, SELFPAY ==
[2022-12-09 20:50] LABS: Amphetamines Positive; Barbiturates Negative; Buprenorphine Negative
[2022-12-09 20:51] LABS: Gabapentin Positive; Marijuana MTB (THC) Positive; Propoxyphene Negative; Urine pH 8.6
[2022-12-09 20:52] LABS: Cocaine Metabolite Negative; Fentanyl Negative; Nitrites Negative; Opiates Negative; Phencyclidine Negative
[2022-12-09 20:53] LABS: 6-Acetylmorphine Negative; Benzodiazepines Negative; Tapentadol Negative
[2022-12-22 16:25] LABS: Carisoprodol Negative; Methadone Negative; Tramadol Negative
== END ==
PROVIDERS: Nurse Practitioner Family; PCP Emergency Medicine; Visit Provider Nurse Practitioner Family
DX: N39.0 Urinary tract infection, site not specified (principal)
CPT/HCPCS: 80307

== ENCOUNTER → 2022-12-03 14:39 | Outpatient (CLI) | payer OTHER, SELFPAY ==
[2022-12-07 16:13] LABS: 6-Acetylmorphine Negative ng/mL (CUTOFF:10); Amphetamine 604 (.); Amphetamines ++POSITIVE++ ng/mL (CUTOFF:300); Barbiturates Negative ng/mL (CUTOFF:200); Benzodiazepines Negative ng/mL (CUTOFF:50); Buprenorphine Negative ng/mL (CUTOFF:5); Carisoprodol Negative ng/mL (CUTOFF:100); Cocaine Metabolite Negative ng/mL (CUTOFF:150); Ethanol Biomarkers Negative ng/mL (CUTOFF:500); Fentanyl Negative ng/mL (CUTOFF:2.0); Gabapentin ++POSITIVE++ ug/mL (CUTOFF:1.0); Marijuana MTB (THC) ++POSITIVE++ ng/mL (CUTOFF:20); Methadone Negative ng/mL (CUTOFF:100); Methamphetamine 1463 (.); Nitrites Negative (NEGATIVE); Opiates Negative ng/mL (CUTOFF:100); Phencyclidine Negative ng/mL (CUTOFF:25); Propoxyphene Negative ng/mL (CUTOFF:300); Tapentadol Negative ng/mL (CUTOFF:200); Tramadol Negative ng/mL (CUTOFF:200); Urine pH 6.2 (4.5-8.9)
== END ==
PROVIDERS: PCP Emergency Medicine; Visit Provider Nurse Practitioner Family
DX: F15.20 Other stimulant dependence, uncomplicated (principal)
CPT/HCPCS: 80307

== ENCOUNTER → 2022-12-10 12:32 | Outpatient (CLI) | payer OTHER, SELFPAY ==
[2022-12-14 12:30] LABS: 6-Acetylmorphine Negative ng/mL (CUTOFF:10); Amphetamine 477 (.); Amphetamines ++POSITIVE++ ng/mL (CUTOFF:300); Barbiturates Negative ng/mL (CUTOFF:200); Benzodiazepines Negative ng/mL (CUTOFF:50); Buprenorphine Negative ng/mL (CUTOFF:5); Carisoprodol Negative ng/mL (CUTOFF:100); Cocaine Metabolite Negative ng/mL (CUTOFF:150); Ethanol Biomarkers ++POSITIVE++ ng/mL (CUTOFF:500); Fentanyl Negative ng/mL (CUTOFF:2.0); Gabapentin ++POSITIVE++ ug/mL (CUTOFF:1.0); Marijuana MTB (THC) ++POSITIVE++ ng/mL (CUTOFF:20); Methadone Negative ng/mL (CUTOFF:100); Methamphetamine 1426 (.); Nitrites Negative (NEGATIVE); Opiates Negative ng/mL (CUTOFF:100); Phencyclidine Negative ng/mL (CUTOFF:25); Propoxyphene Negative ng/mL (CUTOFF:300); Tapentadol Negative ng/mL (CUTOFF:200); Tramadol Negative ng/mL (CUTOFF:200); Urine pH 6.9 (4.5-8.9)
== END ==
PROVIDERS: Nurse Practitioner Family; PCP Emergency Medicine; Visit Provider Emergency Medicine
DX: F15.20 Other stimulant dependence, uncomplicated (principal)
CPT/HCPCS: 80307

== ENCOUNTER → 2022-12-17 14:01 | Outpatient (CLI) | payer OTHER, SELFPAY ==
[2022-12-22 14:32] LABS: 6-Acetylmorphine Negative ng/mL (CUTOFF:10); Amphetamine 64 (.); Amphetamines ++POSITIVE++ ng/mL (CUTOFF:300); Barbiturates Negative ng/mL (CUTOFF:200); Benzodiazepines Negative ng/mL (CUTOFF:50); Buprenorphine Negative ng/mL (CUTOFF:5); Carisoprodol Negative ng/mL (CUTOFF:100); Cocaine Metabolite Negative ng/mL (CUTOFF:150); Ethanol Biomarkers Negative ng/mL (CUTOFF:500); Fentanyl Negative ng/mL (CUTOFF:2.0); Gabapentin ++POSITIVE++ ug/mL (CUTOFF:1.0); Marijuana MTB (THC) ++POSITIVE++ ng/mL (CUTOFF:20); Methadone Negative ng/mL (CUTOFF:100); Methamphetamine 152 (.); Nitrites Negative (NEGATIVE); Opiates Negative ng/mL (CUTOFF:100); Phencyclidine Negative ng/mL (CUTOFF:25); Propoxyphene Negative ng/mL (CUTOFF:300); Tapentadol Negative ng/mL (CUTOFF:200); Tramadol Negative ng/mL (CUTOFF:200); Urine pH 6.9 (4.5-8.9)
== END ==
PROVIDERS: PCP Emergency Medicine; Visit Provider Nurse Practitioner Family
DX: F11.21 Opioid dependence, in remission (principal); F12.21 Cannabis dependence, in remission; F20.9 Schizophrenia, unspecified; F41.1 Generalized anxiety disorder; B19.10 Unspecified viral hepatitis B without hepatic coma; Z51.81 Encounter for therapeutic drug level monitoring
CPT/HCPCS: 80307

== ENCOUNTER → 2022-12-24 13:28 | Outpatient (CLI) | payer OTHER, SELFPAY ==
[2022-12-28 14:35] LABS: 6-Acetylmorphine Negative ng/mL (CUTOFF:10); Amphetamines Negative ng/mL (CUTOFF:300); Barbiturates Negative ng/mL (CUTOFF:200); Benzodiazepines Negative ng/mL (CUTOFF:50); Buprenorphine Negative ng/mL (CUTOFF:5); Carisoprodol Negative ng/mL (CUTOFF:100); Cocaine Metabolite Negative ng/mL (CUTOFF:150); Ethanol Biomarkers Negative ng/mL (CUTOFF:500); Fentanyl Negative ng/mL (CUTOFF:2.0); Gabapentin ++POSITIVE++ ug/mL (CUTOFF:1.0); Marijuana MTB (THC) ++POSITIVE++ ng/mL (CUTOFF:20); Methadone Negative ng/mL (CUTOFF:100); Nitrites Negative (NEGATIVE); Opiates Negative ng/mL (CUTOFF:100); Phencyclidine Negative ng/mL (CUTOFF:25); Propoxyphene Negative ng/mL (CUTOFF:300); Tapentadol Negative ng/mL (CUTOFF:200); Tramadol Negative ng/mL (CUTOFF:200); Urine pH 6.8 (4.5-8.9)
== END ==
PROVIDERS: PCP Emergency Medicine; Visit Provider Nurse Practitioner Family
DX: F15.20 Other stimulant dependence, uncomplicated (principal)
CPT/HCPCS: 80307

== ENCOUNTER → 2023-01-01 14:15 | Outpatient (CLI) | payer OTHER, SELFPAY ==
[2023-01-04 15:03] LABS: 6-Acetylmorphine Negative ng/mL (CUTOFF:10); Amphetamine 293 (.); Amphetamines ++POSITIVE++ ng/mL (CUTOFF:300); Barbiturates Negative ng/mL (CUTOFF:200); Benzodiazepines Negative ng/mL (CUTOFF:50); Buprenorphine Negative ng/mL (CUTOFF:5); Carisoprodol Negative ng/mL (CUTOFF:100); Cocaine Metabolite Negative ng/mL (CUTOFF:150); Ethanol Biomarkers Negative ng/mL (CUTOFF:500); Fentanyl Negative ng/mL (CUTOFF:2.0); Gabapentin Negative ug/mL (CUTOFF:1.0); Marijuana MTB (THC) ++POSITIVE++ ng/mL (CUTOFF:20); Methadone Negative ng/mL (CUTOFF:100); Methamphetamine 664 (.); Nitrites Negative (NEGATIVE); Opiates Negative ng/mL (CUTOFF:100); Phencyclidine Negative ng/mL (CUTOFF:25); Propoxyphene Negative ng/mL (CUTOFF:300); Tapentadol Negative ng/mL (CUTOFF:200); Tramadol Negative ng/mL (CUTOFF:200); Urine pH 6.6 (4.5-8.9)
== END ==
PROVIDERS: Nurse Practitioner Family; PCP Emergency Medicine
DX: F11.21 Opioid dependence, in remission (principal); Z51.81 Encounter for therapeutic drug level monitoring
CPT/HCPCS: 80307

== ENCOUNTER → 2023-01-08 09:38 | Outpatient (CLI) | payer OTHER, SELFPAY ==
[2023-01-11 14:22] LABS: 6-Acetylmorphine Negative ng/mL (CUTOFF:10); Amphetamines Negative ng/mL (CUTOFF:300); Barbiturates Negative ng/mL (CUTOFF:200); Benzodiazepines Negative ng/mL (CUTOFF:50); Buprenorphine Negative ng/mL (CUTOFF:5); Carisoprodol Negative ng/mL (CUTOFF:100); Cocaine Metabolite Negative ng/mL (CUTOFF:150); Ethanol Biomarkers Negative ng/mL (CUTOFF:500); Fentanyl Negative ng/mL (CUTOFF:2.0); Gabapentin Negative ug/mL (CUTOFF:1.0); Marijuana MTB (THC) ++POSITIVE++ ng/mL (CUTOFF:20); Methadone Negative ng/mL (CUTOFF:100); Nitrites Negative (NEGATIVE); Opiates Negative ng/mL (CUTOFF:100); Phencyclidine Negative ng/mL (CUTOFF:25); Propoxyphene Negative ng/mL (CUTOFF:300); Tapentadol Negative ng/mL (CUTOFF:200); Tramadol Negative ng/mL (CUTOFF:200); Urine pH 6.7 (4.5-8.9)
== END ==
PROVIDERS: PCP Emergency Medicine; Visit Provider Nurse Practitioner Family
DX: F15.20 Other stimulant dependence, uncomplicated (principal)
CPT/HCPCS: 80307

== ENCOUNTER → 2023-01-15 14:41 | Outpatient (CLI) | payer OTHER, SELFPAY ==
[2023-01-19 18:06] LABS: 6-Acetylmorphine Negative ng/mL (CUTOFF:10); Amphetamines Negative ng/mL (CUTOFF:300); Barbiturates Negative ng/mL (CUTOFF:200); Benzodiazepines Negative ng/mL (CUTOFF:50); Buprenorphine Negative ng/mL (CUTOFF:5); Carisoprodol Negative ng/mL (CUTOFF:100); Cocaine Metabolite Negative ng/mL (CUTOFF:150); Ethanol Biomarkers Negative ng/mL (CUTOFF:500); Fentanyl Negative ng/mL (CUTOFF:2.0); Gabapentin ++POSITIVE++ ug/mL (CUTOFF:1.0); Marijuana MTB (THC) ++POSITIVE++ ng/mL (CUTOFF:20); Methadone Negative ng/mL (CUTOFF:100); Nitrites Negative (NEGATIVE); Opiates Negative ng/mL (CUTOFF:100); Phencyclidine Negative ng/mL (CUTOFF:25); Propoxyphene Negative ng/mL (CUTOFF:300); Tapentadol Negative ng/mL (CUTOFF:200); Tramadol Negative ng/mL (CUTOFF:200); Urine pH 7.2 (4.5-8.9)
== END ==
PROVIDERS: PCP Emergency Medicine; Visit Provider Nurse Practitioner Family
DX: F15.20 Other stimulant dependence, uncomplicated (principal)
CPT/HCPCS: 80307

== ENCOUNTER → 2023-01-22 13:44 | Outpatient (CLI) | payer OTHER, SELFPAY ==
[2023-01-26 19:35] LABS: 6-Acetylmorphine Negative ng/mL (CUTOFF:10); Amphetamines Negative ng/mL (CUTOFF:300); Barbiturates Negative ng/mL (CUTOFF:200); Benzodiazepines Negative ng/mL (CUTOFF:50); Buprenorphine Negative ng/mL (CUTOFF:5); Carisoprodol Negative ng/mL (CUTOFF:100); Cocaine Metabolite Negative ng/mL (CUTOFF:150); Ethanol Biomarkers Negative ng/mL (CUTOFF:500); Fentanyl Negative ng/mL (CUTOFF:2.0); Gabapentin Negative ug/mL (CUTOFF:1.0); Marijuana MTB (THC) ++POSITIVE++ ng/mL (CUTOFF:20); Methadone Negative ng/mL (CUTOFF:100); Nitrites Negative (NEGATIVE); Opiates Negative ng/mL (CUTOFF:100); Phencyclidine Negative ng/mL (CUTOFF:25); Propoxyphene Negative ng/mL (CUTOFF:300); Tapentadol Negative ng/mL (CUTOFF:200); Tramadol Negative ng/mL (CUTOFF:200); Urine pH 7.3 (4.5-8.9)
== END ==
PROVIDERS: PCP Emergency Medicine; Visit Provider Nurse Practitioner Family
DX: F11.21 Opioid dependence, in remission (principal); F15.20 Other stimulant dependence, uncomplicated; F15.21 Other stimulant dependence, in remission; Z51.81 Encounter for therapeutic drug level monitoring
CPT/HCPCS: 80307

== ENCOUNTER → 2023-01-29 14:22 | Outpatient (CLI) | payer OTHER, SELFPAY ==
[2023-02-03 11:08] LABS: 6-Acetylmorphine Negative ng/mL (CUTOFF:10); Amphetamines Negative ng/mL (CUTOFF:300); Barbiturates Negative ng/mL (CUTOFF:200); Benzodiazepines Negative ng/mL (CUTOFF:50); Buprenorphine Negative ng/mL (CUTOFF:5); Carisoprodol Negative ng/mL (CUTOFF:100); Cocaine Metabolite Negative ng/mL (CUTOFF:150); Ethanol Biomarkers ++POSITIVE++ ng/mL (CUTOFF:500); Fentanyl Negative ng/mL (CUTOFF:2.0); Gabapentin Negative ug/mL (CUTOFF:1.0); Marijuana MTB (THC) ++POSITIVE++ ng/mL (CUTOFF:20); Methadone Negative ng/mL (CUTOFF:100); Nitrites Negative (NEGATIVE); Opiates Negative ng/mL (CUTOFF:100); Phencyclidine Negative ng/mL (CUTOFF:25); Propoxyphene Negative ng/mL (CUTOFF:300); Tapentadol Negative ng/mL (CUTOFF:200); Tramadol Negative ng/mL (CUTOFF:200); Urine pH 6.6 (4.5-8.9)
== END ==
PROVIDERS: PCP Emergency Medicine; Visit Provider Nurse Practitioner Family
DX: F15.20 Other stimulant dependence, uncomplicated (principal)
CPT/HCPCS: 80307

== ENCOUNTER → 2023-02-06 10:58 | Outpatient (CLI) | payer OTHER, SELFPAY ==
[2023-02-08 16:13] LABS: 6-Acetylmorphine Negative ng/mL (CUTOFF:10); Amphetamines Negative ng/mL (CUTOFF:300); Barbiturates Negative ng/mL (CUTOFF:200); Benzodiazepines Negative ng/mL (CUTOFF:50); Buprenorphine Negative ng/mL (CUTOFF:5); Carisoprodol Negative ng/mL (CUTOFF:100); Cocaine Metabolite Negative ng/mL (CUTOFF:150); Ethanol Biomarkers Negative ng/mL (CUTOFF:500); Fentanyl Negative ng/mL (CUTOFF:2.0); Gabapentin Negative ug/mL (CUTOFF:1.0); Marijuana MTB (THC) ++POSITIVE++ ng/mL (CUTOFF:20); Methadone Negative ng/mL (CUTOFF:100); Nitrites Negative (NEGATIVE); Opiates Negative ng/mL (CUTOFF:100); Phencyclidine Negative ng/mL (CUTOFF:25); Propoxyphene Negative ng/mL (CUTOFF:300); Tapentadol Negative ng/mL (CUTOFF:200); Tramadol Negative ng/mL (CUTOFF:200); Urine pH 7.6 (4.5-8.9)
== END ==
PROVIDERS: PCP Emergency Medicine; Visit Provider Nurse Practitioner Family
DX: F15.20 Other stimulant dependence, uncomplicated (principal)
CPT/HCPCS: 80307

== ENCOUNTER → 2023-02-13 11:46 | Outpatient (CLI) | payer OTHER, SELFPAY ==
[2023-02-13 12:40] LABS: Basophils # 0.1 K/mm3 (0-0.2); Basophils % 1.3 % (0.1-2.0); Eosinophils # 0.3 K/mm3 (0.0-0.4); Eosinophils % 4.3 % (0.1-12.0); Hematocrit 44.4 % (42.0-52.0); Lymphocytes # 2.2 K/mm3 (0.7-4.5); Lymphocytes % 34.6 % (10-50); Mean Corpuscular HGB Conc 31.6 g/dL (31.8-35.4); Mean Corpuscular Hemoglobin 32.7 pg (27.0-31.2); Mean Corpuscular Volume 103.6 fl (80-94); Mean Platelet Volume 8.4 fl (7.4-10.4); Monocytes # 0.9 K/mm3 (0.1-1.0); Monocytes % 14.2 % (1.7-9.3); Neutrophils # 2.9 K/mm3 (1.8-7.8); Neutrophils % 45.6 % (37.0-80.0); Platelet Count 156 K/mm3 (142-424); Red Blood Count 4.29 M/mm3 (4.60-6.20); Red Cell Distribution Width 13.8 % (11.5-17.5); White Blood Count 6.3 K/mm3 (4.8-10.8)
[2023-02-13 13:28] LABS: Alanine Aminotransferase 25 U/L (12-78); Albumin/Globulin Ratio 1.3 (1.1-1.8); Alkaline Phosphatase 126 U/L (38-126); Anion Gap 10.5 mEq/L (5-15); Aspartate Amino Transferase 44 U/L (17-59); Bilirubin,Total 1.2 mg/dl (0.2-1.3); Blood Urea Nitrogen 5 mg/dl (9-20); Calcium 9.3 mg/dl (8.4-10.2); Carbon Dioxide 23 mmol/L (22.0-30.0); Chloride 107 mmol/L (98-107); Estimated Glomerular Filt Rate 104 ml/min (>60); GFR (African American) 126 ML/MIN (>60); Globulin 3.1 g/dL (1.3-3.2); Glucose 90 mg/dl (74-100); Potassium 4.5 mmoL/L (3.5-5.1); Sodium 136 mmol/L (136-145); Total Protein,Serum 7.1 g/dl (6.3-8.2)
[2023-02-13 13:55] LABS: Thyroid Stimulating Hormone 0.52 uIU/mL (0.465-4.68)
[2023-02-14 22:18] LABS: Neisseria gonorrhoeae, NAA Negative (Negative)
[2023-02-15 05:25] LABS: HIV Screen 4th Generation wRfx Non Reactive (Non Reactive); Hep B Core Ab, Total Positive (Negative)
[2023-02-15 12:13] LABS: Gabapentin,Urine Negative (.)
[2023-02-16 00:08] LABS: 6-Acetylmorphine Negative ng/mL (CUTOFF:10); Amphetamines Negative ng/mL (CUTOFF:300); Barbiturates Negative ng/mL (CUTOFF:200); Benzodiazepines Negative ng/mL (CUTOFF:50); Buprenorphine Negative ng/mL (CUTOFF:5); Carisoprodol Negative ng/mL (CUTOFF:100); Cocaine Metabolite Negative ng/mL (CUTOFF:150); Ethanol Biomarkers Negative ng/mL (CUTOFF:500); Fentanyl Negative ng/mL (CUTOFF:2.0); Gabapentin Negative ug/mL (CUTOFF:1.0); Marijuana MTB (THC) ++POSITIVE++ ng/mL (CUTOFF:20); Methadone Negative ng/mL (CUTOFF:100); Nitrites Negative (NEGATIVE); Opiates Negative ng/mL (CUTOFF:100); Phencyclidine Negative ng/mL (CUTOFF:25); Propoxyphene Negative ng/mL (CUTOFF:300); Tapentadol Negative ng/mL (CUTOFF:200); Tramadol Negative ng/mL (CUTOFF:200); Urine pH 7.6 (4.5-8.9)
[2023-02-19 14:15] LABS: Miscellaneous Test NON REACTIVE
[2023-03-20 09:00] LABS: Hepatitis B Surface Antigen POSITIVE
[2023-03-20 09:01] LABS: Trichomonas Vaginalis, NAA Negative
== END ==
PROVIDERS: Nurse Practitioner Family; PCP Emergency Medicine; Visit Provider Nurse Practitioner Family
DX: F15.20 Other stimulant dependence, uncomplicated (principal); F11.21 Opioid dependence, in remission; F12.21 Cannabis dependence, in remission; F10.21 Alcohol dependence, in remission; F41.1 Generalized anxiety disorder; B19.10 Unspecified viral hepatitis B without hepatic coma; B19.20 Unspecified viral hepatitis C without hepatic coma; Z11.4 Encounter for screening for human immunodeficiency virus [HIV]
CPT/HCPCS: 36415; 80053; 80307; 84443; 85025; 86703; 86704; 87340; 87491; 87522; 87563; 87591; 87661; G0432

== ENCOUNTER 2023-02-13 12:21 | Emergency (ER) | payer OTHER, SELFPAY ==
[2023-02-13 12:35] VITALS: BP 106/73; PULSE 80; RESP 19; TEMP 36.4; O2SAT 98; BMI 22.0
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
[2023-02-13 13:35] VITALS: BP 106/73; PULSE 80; RESP 19; TEMP 36.4; O2SAT 98
== END 2023-02-13 13:42 | disposition home or self-care (01) ==
PROVIDERS: Emergency Provider Nurse Practitioner; PCP Emergency Medicine
DX: T23.171A Burn of first degree of right wrist, initial encounter (principal); T22.131A Burn of first degree of right upper arm, initial encounter; F17.210 Nicotine dependence, cigarettes, uncomplicated; F33.9 Major depressive disorder, recurrent, unspecified; F20.9 Schizophrenia, unspecified; T22.111A Burn of first degree of right forearm, initial encounter; Z23 Encounter for immunization; X12.XXXA Contact with other hot fluids, initial encounter
CPT/HCPCS: 90471; 90715; 96372; 99204; 99212; G0463

== ENCOUNTER → 2023-02-20 15:02 | Outpatient (CLI) | payer OTHER, SELFPAY ==
[2023-02-27 14:50] LABS: 6-Acetylmorphine Negative ng/mL (CUTOFF:10); Amphetamines Negative ng/mL (CUTOFF:300); Barbiturates Negative ng/mL (CUTOFF:200); Benzodiazepines Negative ng/mL (CUTOFF:50); Buprenorphine Negative ng/mL (CUTOFF:5); Carisoprodol Negative ng/mL (CUTOFF:100); Cocaine Metabolite Negative ng/mL (CUTOFF:150); Ethanol Biomarkers ++POSITIVE++ ng/mL (CUTOFF:500); Fentanyl Negative ng/mL (CUTOFF:2.0); Gabapentin ++POSITIVE++ ug/mL (CUTOFF:1.0); Marijuana MTB (THC) ++POSITIVE++ ng/mL (CUTOFF:20); Methadone Negative ng/mL (CUTOFF:100); Nitrites Negative (NEGATIVE); Opiates Negative ng/mL (CUTOFF:100); Phencyclidine Negative ng/mL (CUTOFF:25); Propoxyphene Negative ng/mL (CUTOFF:300); Tapentadol Negative ng/mL (CUTOFF:200); Tramadol Negative ng/mL (CUTOFF:200); Urine pH 7.1 (4.5-8.9)
== END ==
PROVIDERS: PCP Emergency Medicine; Visit Provider Nurse Practitioner Family
DX: F15.20 Other stimulant dependence, uncomplicated (principal)
CPT/HCPCS: 80307

== ENCOUNTER → 2023-02-27 12:27 | Outpatient (CLI) | payer OTHER, SELFPAY ==
[2023-03-03 08:14] LABS: 6-Acetylmorphine Negative ng/mL (CUTOFF:10); Amphetamines Negative ng/mL (CUTOFF:300); Barbiturates Negative ng/mL (CUTOFF:200); Benzodiazepines Negative ng/mL (CUTOFF:50); Buprenorphine Negative ng/mL (CUTOFF:5); Carisoprodol Negative ng/mL (CUTOFF:100); Cocaine Metabolite Negative ng/mL (CUTOFF:150); Ethanol Biomarkers ++POSITIVE++ ng/mL (CUTOFF:500); Fentanyl Negative ng/mL (CUTOFF:2.0); Gabapentin ++POSITIVE++ ug/mL (CUTOFF:1.0); Marijuana MTB (THC) ++POSITIVE++ ng/mL (CUTOFF:20); Methadone Negative ng/mL (CUTOFF:100); Nitrites Negative (NEGATIVE); Opiates Negative ng/mL (CUTOFF:100); Phencyclidine Negative ng/mL (CUTOFF:25); Propoxyphene Negative ng/mL (CUTOFF:300); Tapentadol Negative ng/mL (CUTOFF:200); Tramadol Negative ng/mL (CUTOFF:200); Urine pH 7.3 (4.5-8.9)
== END ==
PROVIDERS: PCP Emergency Medicine; Visit Provider Nurse Practitioner Family
DX: F15.20 Other stimulant dependence, uncomplicated (principal)
CPT/HCPCS: 36415; 80307